=== PATIENT | female | born 1960 | race Caucasian/White ===

== ENCOUNTER 2024-02-15 19:25 | Inpatient (IN) ==
[2024-02-15 19:48] LABS: Hematocrit 43.9 % (35-45); Mean Corpuscular Hemoglobin 30.8 pg (27-33); Mean Corpuscular Hgb Conc 34.1 g/dL (31-36); Mean Corpuscular Volume 90.2 fL (80-97); Mean Platelet Volume 9.2 fL (7.5-11.2); Platelet Count 256 10^3/uL (150-450); Red Blood Count 4.87 10^6/uL (3.63-4.92); Red Cell Distribution Width 14.6 % (12-17); White Blood Count 11.8 10^3/uL (3.8-11.8)
[2024-02-15] MEDS: Heparin - STEMI 5,000 UNITS/ML 1 ml VIAL IV ONE (19:55)
[2024-02-15 19:58] LABS: INR 0.99 (0.83-1.13)
[2024-02-15] MEDS ORDERED: Iohexol 350 (CONTRAST) 200 ML MDV IV ONE ×2 (20:12→21:24)
[2024-02-15] MEDS ORDERED: Heparin 2 UNITS/ML 1000 mls 2,000 ML IV ONE (20:12)
[2024-02-15] MEDS ORDERED: nitroGLYCERIN DRIP 25,000 MCG/250 ML BTL ONE ×2 (20:12→21:32)
[2024-02-15] MEDS ORDERED: fentaNYL 100 mcg/2 ml 50 MCG/ML VIAL ONE ×2 (20:12→21:04)
[2024-02-15] MEDS ORDERED: Midazolam 5 mg/5 ml VIAL 1 mg/ml 5 ml VIAL (5 mg) ONE (20:12)
[2024-02-15] MEDS ORDERED: Lidocaine 1% MPF 5 ML VIAL ONE ×2 (20:12→20:17)
[2024-02-15] MEDS ORDERED: Heparin 1,000 UNIT/ML 10 ml (10,000 UNITS) CATHLAB/DIALYSIS ONE ×3 (20:12→20:42)
[2024-02-15] MEDS ORDERED: niCARdipine 0.1MG/ML IVPREMIX 20 MG/200 ML BAG IV ONE (20:13)
[2024-02-15] MEDS ORDERED: Flumazenil 0.5 mg/5 ml 0.1 MG/ML 5 ml VIAL IV PRN (20:20)
[2024-02-15] MEDS ORDERED: Naloxone 0.4 mg VIAL 0.4 mg/ml 1 ml VIAL IV PUSH PRN (20:20)
[2024-02-15 20:21] LABS: RBC Morphology Normal (Normal)
[2024-02-15 20:22] LABS: ABS Basophils 0.1 10^3/uL (0.0-0.1); ABS Eosinophils 0.4 10^3/uL (0.0-0.5); ABS Lymphocytes 5.8 10^3/uL (1.0-4.8); ABS Monocytes 0.9 10^3/uL (0.0-0.9); ABS Neutrophils 4.5 10^3/uL (1.5-7.6); ABS Nucleated RBC 0.01 10^3/ul; Activated Partial Thrombo Time 38.9 seconds (26.0-38.0); Eosinophil % 3.8 %; Lymphocyte % 48.9 %; Nucleated Red Blood Cells % 0.1 %/100WBC (0.0-0.8)
[2024-02-15 20:23] LABS: Albumin 4.1 g/dL (3.2-5.2); Albumin/Globulin Ratio 1.3 (1-3); Calcium 9.5 mg/dL (8.6-10.3); Creatinine, Serum 0.86 mg/dL (0.51-0.95); Globulin 3.2 g/dL (2-4); Magnesium 1.8 mg/dL (1.9-2.7); Potassium 3.8 mmol/L (3.5-5.0); Total Bilirubin 0.3 mg/dL (0.2-1.0); Total Protein 7.3 g/dL (6.4-8.9); eGFR CKD-EPI 76.3 (>60)
[2024-02-15] MEDS ORDERED: Heparin 2 UNITS/ML 1000 mls 1,000 ML IV ONE (20:24)
[2024-02-15] MEDS ORDERED: Eptifibatide IV (Load dose) 2 MG/ML 10 ml VIAL ONE ×2 (21:27→21:38)
[2024-02-15] MEDS ORDERED: Ondansetron 4 mg VIAL 2 MG/ML 2 ml VIAL IV PRN (22:02)
[2024-02-15] MEDS: fentaNYL 100 mcg/2 ml 50 MCG/ML VIAL IV SLOW PU ONE (22:43)
[2024-02-15] MEDS: nitroGLYCERIN DRIP 25,000 MCG/250 ML BTL IV SCH (22:44)
[2024-02-15] MEDS: NS 0.9% 1000 ml BAG 1,000 ML IV SCH (22:44)
[2024-02-15] MEDS: Midazolam 10 mg/10 ml VIAL 1 mg/ml 10 ml VIAL (10 mg) IV SLOW PU ONE (22:44)
[2024-02-16 05:38] LABS: Hematocrit 39.2 % (35-45); Hemoglobin 13.2 g/dL (11.5-14.3); Mean Corpuscular Hemoglobin 30.2 pg (27-33); Mean Corpuscular Hgb Conc 33.6 g/dL (31-36); Mean Corpuscular Volume 89.9 fL (80-97); Mean Platelet Volume 9.8 fL (7.5-11.2); Platelet Count 221 10^3/uL (150-450); Red Blood Count 4.37 10^6/uL (3.63-4.92); Red Cell Distribution Width 14.4 % (12-17); White Blood Count 15.3 10^3/uL (3.8-11.8)
[2024-02-16 05:43] LABS: ABS Eosinophils 0.2 10^3/uL (0.0-0.5); ABS Lymphocytes 5.2 10^3/uL (1.0-4.8); ABS Monocytes 1.3 10^3/uL (0.0-0.9); ABS Neutrophils 8.6 10^3/uL (1.5-7.6); ABS Nucleated RBC 0.01 10^3/ul; Eosinophil % 1.4 %; Lymphocyte % 33.7 %; Nucleated Red Blood Cells % 0.1 %/100WBC (0.0-0.8)
[2024-02-16] MEDS ORDERED: Albuterol HFA INHALER 8 gm MDI INH PRN (05:51)
[2024-02-16] MEDS: Magnesium Sulfate 2 gm BAG 2 GM/50 ML BAG IVPB ONE (06:07)
[2024-02-16 06:19] LABS: Albumin 3.7 g/dL (3.2-5.2); Albumin/Globulin Ratio 1.5 (1-3); Calcium 8.5 mg/dL (8.6-10.3); Creatinine, Serum 0.68 mg/dL (0.51-0.95); Globulin 2.4 g/dL (2-4); HDL Cholesterol 33.8 mg/dL; Magnesium 1.9 mg/dL (1.9-2.7); Potassium 3.8 mmol/L (3.5-5.0); Total Bilirubin 0.3 mg/dL (0.2-1.0); Total Protein 6.1 g/dL (6.4-8.9); eGFR CKD-EPI 98.4 (>60)
[2024-02-16] MEDS: Venlafaxine XR 75 mg PO SCH (08:44)
[2024-02-16] MEDS: Potassium Chlor 20 meq TAB.ER PO ONE (08:44)
[2024-02-16] MEDS: CMCS: FLUTICAS/UMECLI/VILANT 100-62.5-25 MDI (NF) INH SCH (10:28)
[2024-02-17 04:32] LABS: ABS Basophils 0.1 10^3/uL (0.0-0.1); ABS Eosinophils 0.4 10^3/uL (0.0-0.5); ABS Lymphocytes 4.2 10^3/uL (1.0-4.8); ABS Monocytes 0.9 10^3/uL (0.0-0.9); ABS Neutrophils 6.9 10^3/uL (1.5-7.6); Eosinophil % 3.3 %; Hematocrit 37.8 % (35-45); Hemoglobin 12.9 g/dL (11.5-14.3); Lymphocyte % 33.5 %; Mean Corpuscular Hemoglobin 30.6 pg (27-33); Mean Corpuscular Hgb Conc 34.2 g/dL (31-36); Mean Corpuscular Volume 89.6 fL (80-97); Mean Platelet Volume 9.4 fL (7.5-11.2); Platelet Count 175 10^3/uL (150-450); Red Blood Count 4.22 10^6/uL (3.63-4.92); Red Cell Distribution Width 14.6 % (12-17); White Blood Count 12.6 10^3/uL (3.8-11.8)
[2024-02-17 04:58] LABS: Albumin 3.7 g/dL (3.2-5.2); Albumin/Globulin Ratio 1.5 (1-3); Calcium 8.6 mg/dL (8.6-10.3); Creatinine, Serum 0.66 mg/dL (0.51-0.95); Globulin 2.4 g/dL (2-4); Total Bilirubin 0.5 mg/dL (0.2-1.0); Total Protein 6.1 g/dL (6.4-8.9); eGFR CKD-EPI 99.1 (>60)
[2024-02-17] MEDS: Morphine 2 MG/ML SYRINGE IV PRN (05:41)
[2024-02-17] MEDS ORDERED: Sulfur Hexaflouride MICROSPHR 25 MG VIAL ONE (07:51)
[2024-02-17 11:34] LABS: High Sensitivity Troponin 1 Hr 1260 pg/mL (<15)
[2024-02-17] MEDS: Furosemide 40 mg/4 ml IV VIAL IV ONE (12:26)
[2024-02-18] MEDS: Iohexol 350 (CONTRAST) 500 ML MDV IV ONE (00:04)
[2024-02-18 07:34] LABS: Hematocrit 37.9 % (35-45); Hemoglobin 12.9 g/dL (11.5-14.3); Mean Corpuscular Hemoglobin 30.5 pg (27-33); Mean Corpuscular Volume 89.8 fL (80-97); Mean Platelet Volume 10.1 fL (7.5-11.2); Platelet Count 193 10^3/uL (150-450); Red Blood Count 4.22 10^6/uL (3.63-4.92); Red Cell Distribution Width 14.1 % (12-17); White Blood Count 11.7 10^3/uL (3.8-11.8)
[2024-02-18 08:50] LABS: Calcium 8.9 mg/dL (8.6-10.3); Creatinine, Serum 0.68 mg/dL (0.51-0.95); Potassium 4.2 mmol/L (3.5-5.0); eGFR CKD-EPI 98.4 (>60)
[2024-02-19 06:15] LABS: Calcium 9.1 mg/dL (8.6-10.3); Creatinine, Serum 0.65 mg/dL (0.51-0.95); eGFR CKD-EPI 99.5 (>60)
[2024-02-19 09:33] VITALS: BP 110/51
== END 2024-02-19 14:17 | disposition home or self-care (01) | DRG 174 ==
LOC: EDHOLD 19:25 → ED 19:25 → EDHOLD 20:24 → ICU 22:02 → MEDTELE 02-17 19:36
PROVIDERS: ADMIT Internal Medicine; ATTEND Internal Medicine